=== PATIENT | female | born 1975 | race Caucasian/White ===

== ENCOUNTER → 2017-11-11 10:48 | Outpatient (CLI) | payer BC, SELFPAY | PROVIDERS: Visit Provider Physician Assistant | DX: N39.0 Urinary tract infection, site not specified (principal) | CPT/HCPCS: 87077; 87086; 87186 ==

== ENCOUNTER → 2017-12-09 10:30 | Outpatient (CLI) | payer BC, SELFPAY | PROVIDERS: Visit Provider Physician Assistant | DX: N89.8 Other specified noninflammatory disorders of vagina (principal) | CPT/HCPCS: 87210 ==

== ENCOUNTER → 2020-06-04 16:49 | Outpatient (CLI) | payer BC, SELFPAY ==
[2020-06-04] MEDS: COVID-19 VACC #1, MRNA(MOD) 100 MCG/0.5 ML VIAL IM (16:58)
== END ==
PROVIDERS: PCP Family Medicine; Visit Provider Internal Medicine
DX: Z23 Encounter for immunization (principal)
CPT/HCPCS: 0011A; 91301

== ENCOUNTER → 2020-07-03 14:39 | Outpatient (CLI) | payer BC, SELFPAY ==
[2020-07-03] MEDS: COVID-19 VACC #2, MRNA(MOD) 100 MCG/0.5 ML VIAL IM (14:43)
== END ==
PROVIDERS: PCP Family Medicine; Visit Provider Internal Medicine
DX: Z23 Encounter for immunization (principal)
CPT/HCPCS: 0012A; 91301

== ENCOUNTER → 2021-03-19 11:27 | Outpatient (CLI) | payer BC, SELFPAY ==
[2021-03-19 14:01] LABS: COVID19 -Nasal RAPID POSITIVE (Negative)
== END ==
PROVIDERS: PCP Family Medicine; Visit Provider Physician Assistant
DX: U07.1 COVID-19 (principal)
CPT/HCPCS: 87635

== ENCOUNTER → 2022-11-12 12:18 | Outpatient (CLI) | payer BC, SELFPAY ==
--- NOTE | 2022-11-12 12:19 | DI.US.S_ITS ---
PROCEDURE: US PELVIC COMPLETE INDICATIONS: MENORRHAGIA TECHNIQUE: Real-time scanning was performed of the pelvic organs, with image documentation. Additional endovaginal scanning was necessary due to incomplete visualization of the adnexal and endometrial structures by transabdominal scanning. COMPARISON: None. FINDINGS: Uterus: Uterus is anteverted and normal in size at 8.9 x 4.9 x 6.5 cm. The myometrium is heterogeneous without focal mass. The endometrium measures 15.9 mm combined thickness. Ovaries: The right ovary measures 5.3 x 2.1 x 3.5 cm, with a calculated ovarian volume of 20.7 cc. The left ovary is not visualized. Prominent follicle/small cyst is present on the right measuring 2.6 cm. Other: No pathologic free abdominal or pelvic fluid. IMPRESSION: Nonvisualization left ovary. Prominent follicle/small cyst within the right ovary. We strive to produce accurate, complete, and clear reports of imaging services. To assist us in improving patient care, this report was composed using standard report templates and voice recognition software. Therefore, it may contain abnormal punctuation, insertions and/or omissions. Occasional wrong-word or sound-alike substitutions may occur. Though we review the report and make efforts to correct it, we do recommend that the report be read carefully in proper context to recognize any text inaccuracies. Dictated by: Kalee Shah M.D. on 11/12/2022 at 16:31 Approved by: Kalee Shah M.D. on 11/12/2022 at 16:32
== END ==
PROVIDERS: PCP Family Medicine; Referring Provider Family Medicine; Visit Provider Family Medicine
DX: N92.0 Excessive and frequent menstruation with regular cycle (principal); N83.201 Unspecified ovarian cyst, right side
CPT/HCPCS: 76830; 76856; 93976

== ENCOUNTER → 2022-12-02 10:42 | Outpatient (CLI) | payer BC, SELFPAY ==
--- NOTE | 2022-12-02 10:43 | DI.MRI.S_ITS ---
BREAST MRI OF BOTH BREASTS: 12/02/2022 CLINICAL: Family history of malignant neoplasm. PROCEDURE: MR BREAST BI WO/W CON INDICATIONS: increased lifetime risk of BR CA TECHNIQUE: The patient was placed prone in a dedicated breast imaging coil. Precontrast axial STIR and 3D FLASH without fat saturation sequences were obtained. Both before and after bolus injection of contrast, sequential 1-minute axial 3D FLASH with fat saturation sequences for 3 time points, with subtraction images and maximum intensity projections (MIP's) generated. Delayed sagittal FLASH images with fat saturation were also obtained. Contrast: 20 cc ProHance IV contrast. Computer-aided detection, including computer algorithm analysis of MRI image data for lesion detection and characterization, pharmacokinetic analysis, with further physician review for interpretation, was performed. COMPARISON: [facility], MG, MG SCREENING BILATERAL DIGITAL BREAST TOMOSYNTHESIS, 11/04/2022, 10:39. [facility], MG, MG SCREENING BILATERAL DIGITAL BREAST TOMOSYNTHESIS, 12/05/2020, 11:14. US, US BREAST LIMITED LEFT, 11/23/2018, 14:24. [facility], MG, MG DIAGNOSTIC BILATERAL DIGITAL BREAST TOMOSYNTHESIS, 11/23/2018, 14:09. FINDINGS: Image quality: Excellent. There is mild background parenchymal enhancement. Right breast: No mass or suspicious enhancement. Left breast: No mass or suspicious enhancement. Miscellaneous: No enlarged lymph nodes. IMPRESSION: NEGATIVE No mass or suspicious enhancement. No enlarged lymph nodes. BIRADS 1 A 1 year screening mammogram is recommended. 11/05/2023 Recommend continued breast MRI screening. COMMENT: The imaging literature indicates that a negative contrast breast MRI examination has a high sensitivity and a moderate specificity for detecting and excluding invasive carcinomas to a detection threshold of 3-5 mm; nonetheless, appropriate clinical and mammographic follow-up are recommended. MRI is not sensitive for detecting DCIS (ductal carcinoma in situ) and may not detect large invasive neoplasms that show only minimal enhancement such as mucinous carcinoma. If there are suspicious calcifications or clinically worrisome palpable masses, then biopsy should still be considered. Invasive neoplasms can be hidden by co-existent and benign enhancement caused by mastitis, hormone therapy effects, radiation therapy, , and recent biopsy or surgery. False positive examinations can occur in a number of circumstances, including breasts that have recently been subject to invasive procedures and those that contain atypical ductal hyperplasia, hormonally stimulated glandular tissue, fat necrosis, or radial scars. Dictated by: Bryon Nayg M.D. on 12/02/2022 at 14:05 This exam was interpreted at Station ID: [id number]. Electronically Signed By: Bryon Nagy M.D. slc/:12/02/2022 14:21:46 letter sent: Normal Exam ACR BI-RADS Category 1: Negative [id number]
== END ==
PROVIDERS: PCP Family Medicine; Referring Provider Family Medicine; Visit Provider Family Medicine
DX: Z91.89 Other specified personal risk factors, not elsewhere classified (principal); Z80.9 Family history of malignant neoplasm, unspecified
CPT/HCPCS: 77049; A9579

== ENCOUNTER 2023-03-18 12:26 | Day surgery (SDC) | payer BC, SELFPAY ==
[2023-03-15 09:43] VITALS: BMI 25.5
[2023-03-18] VITALS (11 sets, daily range): BP systolic 97–106; BP diastolic 55–69; PULSE 63–73; RESP 12–18; TEMP 36.2–36.6; O2SAT 95–100; BMI 25.5
--- NOTE | 2023-03-18 | PATH_ITS ---
[facility] Accession Number: [id number] No. of containers..01 Tissue . 01 Material submitted: . uterus - UTERUS, CERVIX AND FALLOPIAN TUBES . 01 Diagnosis: Uterus, Cervix, and Fallopian Tubes; Hysterectomy (Preserved Ovaries): Uterine Cervix: Focal, mild squamous atypia, not diagnostic for squamous dysplasia. Negative for glandular dysplasia and invasive malignancy (remote history of endocervical adenocarcinoma is noted), the entire cervix is examined microscopically. Endometrium: Proliferative phase endometrium without endometrial polyps, hyperplasia, atypia or malignancy. Small, benign intramural leiomyoma, 0.3 cm in diameter. Focal adenomyosis also present. Benign, bilateral fallopian tubes and paratubal cysts. Negative for atypia and malignancy. [facility] 03/22/2023 1451 Local . 01 Electronically signed: . Trent Mendoza MD, Pathologist NPI- [id number] . 01 Gross description: . The specimen is received in formalin labeled with the patient's name, , and uterus, cervix, and fallopian tubes, and consists of a uterus and cervix (131 grams, and the uterus measuring 4.0 cm from superior to inferior, 6.0 cm from medial to lateral, and 4.3 cm from anteiror to posterior); the detached cervix measures 4.5 x 3.4 cm and 6.1 cm in length. Both fallopian tubes are detached, and unoriented measuring 3.4 x 0.7 cm and 3.9 x 0.6 cm, with no additional adnexa. . The ectocervix is eden and wrinkled with a patulous os measuring 1.2 cm in greatest dimension. A presumed peritoneal reflection is identified marking the presumed posterior portion of the cervix. The presumed anterior paracervical margin is inked blue while the presumed posterior paracervical margin is inked black. The endocervical canal has eden herringbone mucosa and measures 2.2 cm in length with no lesions identified. . THe uterine serosa is eden and smooth with no evidence of hemorrhage or adhesion identified. The endometrial cavity measures 3.2 cm from cornu to cornu, and 2.1 cm in length with eden velvety endometrium that averages 0.3 cm thick with no lesions identified. The myometrium is eden and trabecular measuring up to 2.1 cm in maximum thickness with a small, fairly well-defined nodule meausuring 0.3 cm in greatest dimension. Separately, a hemorrhagic cavity is identified measuring 0.6 cm in greatest dimension. . Both tubes have violaceous, smooth serosa with cystic structures measuring up to 0.3 cm in greatest dimension filled with clear serous fluid. Sectioning reveals unremarkable stellate lumen. . Monitoring Manager sections to include the entire cervix are submitted as follows: A1-A2: 12 o'clock to 3 o'clock cervix. A3-A5: 3 o'clock to 6 o'clock cervix. A6-A8: 6 o'clock to 9 o'clock cervix. A9-A11: 9 o'clock to 12 o'clock cervix. A12-A13: Full thickness sections of uterus. A14: Nodule and hemorrhagic cavity. A15: Serosa. A16: Longer fallopian tube to include one-half of bisected fimbriae and cross-sections. A17: [place] fallopain tube to include one-half of bisected fimbriae and cross-sections. ([id number]) /YUDITH 03/19/[address] [place] [address] . 01 Pathologist provided ICD-10: N92.4, Z86.001 . 01 CPT . 227853 Specimen Comment: A courtesy copy of this report has been sent to [phone] Performed at: 01 [facility] [address] [place] [address] [address] [facility], [place], [place] [id number] MD Uday Leija MD Phone: [phone]
--- NOTE | 2023-03-18 13:14 | PM.PREOP ---
Pre-operative Note Interval Note History & Physical reviewed/Exam performed by Physician: Yes Changes to H&P: No
[2023-03-18] MEDS: ACETAMINOPHEN 325 MG TABLET 975 MG PO (13:29)
[2023-03-18] MEDS: SCOPOLAMINE 1 PATCH TOP (13:29)
[2023-03-18] MEDS: CEFAZOLIN 2 GM/100 ML PREMIX 100 ML IV (13:48)
--- NOTE | 2023-03-18 14:03 | SUR.OPER ---
Lithotomy on padded OR bed, head on pillow, arms secured on padded arm boards at <90 degrees abduction. Legs secured in padded yellow fins stirrups.
[2023-03-18] MEDS: BUPIVACAINE 0.5% (PF) 30 ML, EPINEPHrine 0.15 MG INJ (14:09)
--- NOTE | 2023-03-18 15:30 | P.OP_ITS ---
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 Post-op diagnosis: same Procedure & Clinicians Procedure: Total vaginal hysterectomy with bilateral salpingectomies Same procedure as scheduled: Yes Indications: Menorrhagia with remote history of adenocarcinoma in Situ Surgeon: Caroline Arrieta Foundation Stage Teacher: Brigida Acosta Anesthesia Type: General Operative Notes Findings: Normal tubes and ovaries, enlarged boggy uterus, large cervix, minimal vaginal wall prolapse Closure Type: primary Specimen(s): other (Uterus and bilateral fallopian tubes) Applied: catheter (Cano removed at the end of the case) Estimated Blood Loss (mL): 100 Blood products transfused: none Procedure in detail: Patient was brought to the operating room where she was placed in yellowfin stirrups and prepped and draped in the usual sterile fashion. A check system was reviewed prior to the beginning of the case. Pulsatile stockings were in place and functional throughout the case. Warming was in place. 2 g of Ancef were in prior to beginning of the case. A Cano catheter was placed. Lidocaine with epinephrine was injected around the cervix. A single-tooth tenaculum was placed on the posterior lip of the cervix and a colpotomy incision was made. The peritoneum was sutured to the posterior vaginal wall. The uterosacral ligaments were clamped cut and ligated with 0 Vicryl suture which was used throughout the rest the case unless otherwise indicated. Bites were taken of the cardinal ligament and cut and ligated. A scalpel was used to circumscribe the cervix and the bladder pushed superiorly. The bladder pillars were clamped cut and ligated. Keeping the bladder pushed superiorly sequential bites were taken of the cardinal and broad ligaments using the LigaSure. Anterior colpotomy incision was made and the bladder held away from the uterus. The rest of the attachments of the uterus including the broad ligament and the utero- ovarian ligaments were clamped and ligated. The uterus was removed intact. Janice clamps were used to grasp the right fallopian tube and the LigaSure was used to cauterize and cut the mesosalpinx allowing the fallopian tube to be removed. Same procedure performed on the left side. Adequate hemostasis was noted. The perineum was closed in a pursestring suture. The vaginal cuff was closed with [id number] sutures of 0 Vicryl suture. Adequate hemostasis was noted. Counts of instruments and sponges were correct. The patient went to recovery room in good condition. Complications: none Post-operative Condition: stable Disposition: observation (Patient is hoping to be discharged later today) Plan for aftercare: Patient will be discharged when she is ambulatory, tolerating regular diet, and pain is under control.
[2023-03-18] MEDS: LACTATED RINGERS 1,000 ML 100 ML IV (16:34)
[2023-03-18] MEDS: ACETAMINOPHEN 325 MG TABLET 650 MG PO (17:23)
--- NOTE | 2023-03-18 18:39 | PM.DS.1 ---
History of Present Illness History of Present Illness Date Patient Seen: 03/18/23 Time Patient Seen: 18:39 Chief complaint: Total Vag Hysterectomy *OPB* Discharge Providers Provider Discharge Date: 03/18/23 Primary care physician: Donna Blakely MD Discharge provider: Caroline Arrieta MD Summary Hospital Course Discharge Diagnosis: Vaginal hysterectomy for menorrhagia and remote history of adenocarcinoma in situ of the cervix Hospital Course: Patient underwent a vaginal hysterectomy with bilateral salpingectomy. She is able to urinate. She is tolerating regular diet. She has minimal discomfort. She is able to ambulate. She is requesting discharge. Status at Discharge Cognitive/behavioral status at discharge: oriented Overall status at discharge: patient is progressing back to baseline Time Spent with Patient Time spent: Less than 30 minutes Exam Vital Signs (past 8 hours): - 03/18/23 13:10 03/18/23 15:27 03/18/23 15:32 Temperature 97.9 F 97.2 F L Pulse Rate 68 70 69 Respiratory Rate 16 15 18 Blood Pressure 102/66 106/69 104/67 Pulse Oximetry 99 95 97 Oxygen Delivery Method Room Air Room Air Room Air Oxygen Flow Rate 03/18/23 15:37 03/18/23 15:42 03/18/23 15:47 Temperature 97.8 F Pulse Rate 69 66 63 Respiratory Rate 14 12 16 Blood Pressure 104/63 100/65 100/62 Pulse Oximetry 98 99 96 Oxygen Delivery Method Room Air Room Air Room Air Oxygen Flow Rate 03/18/23 15:52 03/18/23 15:57 03/18/23 16:13 Temperature Pulse Rate 66 66 73 Respiratory Rate 14 14 18 Blood Pressure 100/64 99/62 97/64 Pulse Oximetry 98 99 100 Oxygen Delivery Method Room Air Room Air Room Air Oxygen Flow Rate 03/18/23 16:20 03/18/23 16:42 03/18/23 16:50 Temperature 97.7 F 97.7 F Pulse Rate 65 68 Respiratory Rate 14 18 Blood Pressure 102/56 L 98/55 L Pulse Oximetry 99 100 Oxygen Delivery Method Room Air Oxygen Flow Rate 0 Oxygen Delivery Method Room Air Oxygen Flow Rate 0 PFSH Medical History (Updated 11/24/22 @ 10:19 by Caroline Arrieta MD) Adenocarcinoma in situ (AIS) of uterine cervix (~1999) Hx of cervical cancer Genital herpes Crohn disease Surgical History (Updated 03/18/23 @ 15:27 by Caroline Arrieta MD) History of conization of cervix Family History (Updated 03/02/18 @ 11:10 by Donna Blakely MD) Mother Cancer Diabetes mellitus Father Parkinson disease Sister Rheumatoid arthritis Social History marital status: number of children: 2 household members: spouse, family and children lives independently: Yes caregiver/support person: No housing: house education level: college occupational status: employed Smoking Status: Never smoker second hand exposure: No alcohol intake: never substance use type: does not use Discharge Assessment & Plan Assessment and Plan Assessment: Status post vaginal hysterectomy with bilateral salpingectomy doing well Plan of Treatment: Patient requesting early discharge. Discharge Plan Discharge Plan Patient Disposition: Home Discharge orders & Medications Discharge Orders: Discharge (Order); Ordered 03/18/23 Ordered By: Caroline Arrieta Prescriptions: Continued Stelara 90 mg/mL syringe 90 mg SUBCUT Q4W betamethasone dipropionate 0.05 % cream See Rx Instructions .ROUTE .COMPLEX Qty: 15 3RF Dose Instruction: APPLY TOPICALLY TO THE AFFECTED AREA DAILY NEEDED FOR RASH Rx Instructions: APPLY TOPICALLY TO THE AFFECTED AREA DAILY NEEDED FOR RASH acyclovir 400 mg tablet See Rx Instructions .ROUTE .COMPLEX Qty: 25 0RF Dose Instruction: TAKE 1 TABLET BY MOUTH FIVE TIMES DAILY Rx Instructions: TAKE 1 TABLET BY MOUTH FIVE TIMES DAILY oxycodone 5 mg tablet 5 mg PO Q4H PRN (Reason: pain) Qty: 20 0RF Patient Comments: new Rx for current post op Follow up/Referrals: Caroline Arrieta MD [Physician] - (Patient has a telehealth appointment scheduled with Dr. Adam on 04/05) Donna Blakely MD [Primary Care Provider] - Diet/Activity/Treatments Diet: Regular Activity: Nothing in vagina or lifting over 20 lb for 6 weeks Skin/Wound/Dressing Care Report to your healthcare provider any signs of infection, such as:: chills, fever and increased pain Visit Report/Discharge Packet Instructions: DI for Hysterectomy Stand Alone Forms: Patient Portal/API, Surgery Discharge Discharge Data Primary Care Provider: Donna Blakely Attending Provider: Caroline Arrieta
--- NOTE | 2023-03-18 19:10 | PC.NURSE ---
Discharge: Pt A&Ox4, agreeable to D/C plan. Pt able to void 200mL. Denies pain, denies nausea. Discharge paperwork discussed, questions answered, IV d/c'd. Pt dressed independently. Pt wheeled via wheelchair to private vehicle by this RN and mother at approximately 1900.
== END 2023-03-18 19:00 | disposition home or self-care (01) ==
LOC: OR 12:27 → AC 14:03
PROVIDERS: PCP Family Medicine; Referring Provider Specialist; Visit Provider Specialist
PROC: (CPT 58260; principal; 2023-03-18 13:30)
DX: N92.4 Excessive bleeding in the premenopausal period (principal); Z86.001 Personal history of in-situ neoplasm of cervix uteri; Z90.710 Acquired absence of both cervix and uterus; D25.1 Intramural leiomyoma of uterus; N83.8 Other noninflammatory disorders of ovary, fallopian tube and broad ligament; N80.03 Adenomyosis of the uterus
CPT/HCPCS: 58262; J0171; J0690; J1100; J1170; J2250; J2405; J2704; J3010

== ENCOUNTER → 2024-02-02 08:42 | Outpatient (CLI) | payer BC, SELFPAY ==
[2023-03-18 16:35] VITALS: BMI 25.5
--- NOTE | 2024-02-02 08:43 | DI.MRI.S_ITS ---
BREAST MRI OF BOTH BREASTS: 02/02/2024 CLINICAL: Dense breast abnormal Mammogram. PROCEDURE: MR BREAST BI WO/W CON INDICATIONS: follow up TECHNIQUE: The patient was placed prone in a dedicated breast imaging coil. Precontrast axial STIR and 3D FLASH without fat saturation sequences were obtained. Both before and after bolus injection of contrast, sequential 1-minute axial 3D FLASH with fat saturation sequences for 3 time points, with subtraction images and maximum intensity projections (MIP's) generated. Delayed sagittal FLASH images with fat saturation were also obtained. Computer-aided detection, including computer algorithm analysis of MRI image data for lesion detection and characterization, pharmacokinetic analysis, with further physician review for interpretation, was performed. COMPARISON: [facility], , MR BREAST BI WO/W CON, 12/02/2022, 10:49. FINDINGS: Image quality: Excellent. There is moderate background parenchymal enhancement. Right breast: A focal region of enhancement is present within the skin overlying the lateral aspect of the right breast at 11 o'clock (series 5/image 100). No suspicious enhancement or mass lesions within the right breast. Left breast: No suspicious enhancement or mass lesions. Miscellaneous: No axillary or intramammary adenopathy. Limited visualization of the heart, lungs, mediastinum and abdomen are unremarkable. IMPRESSION: NEGATIVE 1. Focal enhancing lesion within the skin overlying the right breast as above. The significance of this finding is unclear; however direct visualization could be used to further characterize this finding. Findings suggest a small dermal infection. 2. No suspicious mass lesions or enhancement within the breasts. Return to annual mammogram screening schedule is recommended. This exam was interpreted at Station ID: [id number]. Electronically Signed By: Oma nevarez/:02/02/2024 12:24:20 letter sent: Normal Exam ACR BI-RADS Category 1: Negative
== END ==
PROVIDERS: PCP Family Medicine; Referring Provider Family Medicine; Visit Provider Family Medicine
DX: R92.8 Other abnormal and inconclusive findings on diagnostic imaging of breast (principal); L98.8 Other specified disorders of the skin and subcutaneous tissue; Z80.9 Family history of malignant neoplasm, unspecified
CPT/HCPCS: 77049; A9579